=== PATIENT | male | born 1995 | race Caucasian/White ===

== ENCOUNTER 2017-10-01 12:41 | Emergency (ER) | payer OTHER, SELFPAY ==
[2017-10-01 12:42] VITALS: BP 136/81; PULSE 85; RESP 12; TEMP 36.6; BMI 21.7
--- NOTE | 2017-10-01 12:55 | RAD_ITS ---
STUDY: X-RAY - RIGHT ANKLE REASON FOR EXAM: Male, 22 years old. Trauma TECHNIQUE: 3 view(s) of the ankle. COMPARISON: None. FINDINGS: There are nondisplaced fractures of the medial and posterior malleolus. There is a well-corticated osseous density adjacent to the lateral malleolus which is likely due to prior trauma. There is soft tissue swelling. There are no significant degenerative changes. There are no radiodense foreign bodies. RAD/Ankle min 3 Views IMPRESSION: Nondisplaced fractures of the medial and posterior malleolus. Soft tissue swelling. Electronically Signed: Wilfrid Mann, at 14:23 EST Tel , Service support ,
--- NOTE | 2017-10-01 13:05 | RAD_ITS ---
STUDY: X-RAY - LEFT ANKLE REASON FOR EXAM: Male, 22 years old. Trauma TECHNIQUE: 3 view(s) of the ankle. COMPARISON: None. FINDINGS: There is no evidence of fracture or dislocation. There are no significant degenerative changes. There are no radiodense foreign bodies. RAD/Ankle min 3 Views IMPRESSION: No fracture or dislocation. Electronically Signed: Wilfrid Mann, at 14:24 EST Tel , Service support ,
--- NOTE | 2017-10-01 14:34 | ED.VISSUMM ---
- ER Visit Summary Date of Service: 10/01/17 Chief Complaint: [Fall and injury to both ankles] History of Present Illness: The patient is a 22 M [presents to the emergency department with chief complaint of a fall that occurred yesterday. Patient states that he slipped on the ice and injured both ankles. Patient unable to put any weight on his right ankle but is able to bear some weight on the left ankle. Patient denies any other injuries.] Physical Examination: [HEENT-PERRLA, EOMI. Cranial nerves II through XII grossly intact. TMs clear. Mucous membranes moist. No adenopathy. Cardiovascular-regular rate and rhythm without murmur or ectopy Lungs-clear to auscultation, chest wall stable without crepitus or subcu emphysema Abdomen-normoactive bowel sounds, soft, nontender, no rebound or rigidity, no peritoneal signs. Extremities-intact ?4, normal range of motion, normal pulses. Right ankle-there is diffuse soft tissue swelling with tenderness to the medial and lateral malleoli. Patient has no pain at the base of the fifth metatarsal or the proximal fibular head. He is nervously intact distally. There is some ecchymosis and bruising noted inferior to the medial malleolus. Left ankle-diffuse soft tissue swelling about the ankle with tenderness mostly to the medial malleolus. No obvious deformity. Neurovascular intact distally. No pain at the proximal fibular head or base of fifth metatarsal. Test Results: [Rays of the right ankle showed a bimalleolar fracture involving the medial and posterior malleoli. X-rays of the left ankle showed no fractures.] Emergency Department Course and Treatment: [Patient was placed in a stirrup and posterior splint was fabricated out of Ortho-Glass. Patient was given an air splint for the left ankle. Patient will be given crutches. He did not want anything for pain here.] Treatment Plan: [Patient will be given a prescription for [place]. I did discuss case with Dr. Steven Patel who is on for orthopedics who asked that patient follow-up with his office in 2-5 days.] She will be given a prescription for [place] for pain Disposition: [Dis-charged to home in stable condition] Impression: [Right ankle bimalleolar fracture Left ankle sprain] This note was generated with [employer] software. It may contain incorrect words, spelling, and punctuation that were not noted in review of the chart prior to signing ED Disposition - Plan for ED Patient: Chief Complaint: Lower Extremity Injury Referrals: [facility] Doctor,Out of [Primary Care Provider] -
--- NOTE | 2017-10-01 14:38 | ED.DCSUM_ITS ---
- ER Visit Summary Date of Service: 10/01/17 Chief Complaint: [Fall and injury to both ankles] History of Present Illness: The patient is a 22 M [presents to the emergency department with chief complaint of a fall that occurred yesterday. Patient states that he slipped on the ice and injured both ankles. Patient unable to put any weight on his right ankle but is able to bear some weight on the left ankle. Patient denies any other injuries.] Physical Examination: [HEENT-PERRLA, EOMI. Cranial nerves II through XII grossly intact. TMs clear. Mucous membranes moist. No adenopathy. Cardiovascular-regular rate and rhythm without murmur or ectopy Lungs-clear to auscultation, chest wall stable without crepitus or subcu emphysema Abdomen-normoactive bowel sounds, soft, nontender, no rebound or rigidity, no peritoneal signs. Extremities-intact ?4, normal range of motion, normal pulses. Right ankle- there is diffuse soft tissue swelling with tenderness to the medial and lateral malleoli. Patient has no pain at the base of the fifth metatarsal or the proximal fibular head. He is nervously intact distally. There is some ecchymosis and bruising noted inferior to the medial malleolus. Left ankle- diffuse soft tissue swelling about the ankle with tenderness mostly to the medial malleolus. No obvious deformity. Neurovascular intact distally. No pain at the proximal fibular head or base of fifth metatarsal. Test Results: [Rays of the right ankle showed a bimalleolar fracture involving the medial and posterior malleoli. X-rays of the left ankle showed no fractures.] Emergency Department Course and Treatment: [Patient was placed in a stirrup and posterior splint was fabricated out of Ortho-Glass. Patient was given an air splint for the left ankle. Patient will be given crutches. He did not want anything for pain here.] Treatment Plan: [Patient will be given a prescription for [place]. I did discuss case with Dr. Steven Patel who is on for orthopedics who asked that patient follow-up with his office in 2-5 days.] She will be given a prescription for [place] for pain Disposition: [Dis-charged to home in stable condition] Impression: [Right ankle bimalleolar fracture Left ankle sprain] This note was generated with [employer] software. It may contain incorrect words, spelling, and punctuation that were not noted in review of the chart prior to signing ED Disposition - Plan for ED Patient: Chief Complaint: Lower Extremity Injury Referrals: [facility] Doctor,Out of [Primary Care Provider] -
--- NOTE | 2017-10-01 14:40 | ED.DEP ---
ED Disposition - Plan for ED Patient: Chief Complaint: Lower Extremity Injury Instructions: ED Sprain Ankle W X Ray, ED Fx Ankle General Prescriptions: Hydrocodone Bitart/Apap 5-325 [[place] 5/325] 1 - 2 tab PO Q4H PRN PRN 5 Days #20 tab PRN Reason: Pain Referrals: [facility],Out of [Primary Care Provider] - Steven Patel DO [STAFF PHYSICIAN] - 3-5 Days
[2017-10-01 14:52] VITALS: BP 112/86; PULSE 86; RESP 17; O2SAT 99
== END 2017-10-01 14:53 | disposition home or self-care (01) ==
PROVIDERS: Emergency Provider Emergency Medicine
DX: S82.841A Displaced bimalleolar fracture of right lower leg, initial encounter for closed fracture (principal); S93.402A Sprain of unspecified ligament of left ankle, initial encounter; W00.0XXA Fall on same level due to ice and snow, initial encounter; Y93.9 Activity, unspecified; Y92.9 Unspecified place or not applicable
CPT/HCPCS: 29515; 73610; 99282